=== PATIENT | male | born 1935 | race Caucasian/White ===

== ENCOUNTER → 2016-03-28 | Outpatient (CLI) | payer MEDICARE | LOC: GMAB 12:46 | PROVIDERS: ATTEND Family Medicine | DX: R79.82 Elevated C-reactive protein (CRP) (principal); R97.20 Elevated prostate specific antigen [PSA] ==

== ENCOUNTER → 2016-10-20 | Outpatient (CLI) | payer MEDICARE | END | disposition home or self-care (01) | LOC: GMAB 10:10 | PROVIDERS: ATTEND Family Medicine | DX: N39.0 Urinary tract infection, site not specified (principal) ==

== ENCOUNTER → 2016-11-20 | Outpatient (CLI) | payer MEDICARE | END | disposition home or self-care (01) | LOC: GMAB 10:24 | PROVIDERS: ATTEND Family Medicine | DX: Z12.5 Encounter for screening for malignant neoplasm of prostate (principal); I10 Essential (primary) hypertension; E11.9 Type 2 diabetes mellitus without complications; R97.20 Elevated prostate specific antigen [PSA] ==

== ENCOUNTER → 2016-12-25 | Outpatient (CLI) | payer MEDICARE | END | disposition home or self-care (01) | LOC: GMAB 14:48 | PROVIDERS: ATTEND Family Medicine | DX: N39.0 Urinary tract infection, site not specified (principal) ==

== ENCOUNTER → 2017-02-07 | Outpatient (CLI) | payer MEDICARE ==
--- NOTE | 2017-02-08 11:17 | US ---
EXAM DESCRIPTION: Carotid Duplex CLINICAL HISTORY: R26.81 UNSTEADINESS OF FEET COMPARISON: None Available. TECHNIQUE: Carotid Doppler ultrasound grayscale, color Doppler, and spectral pulse Doppler evaluation. FINDINGS: On the right, common carotid artery is tortuous with layering soft plaque along the posterior wall and focal calcified plaque at the bifurcation anteriorly and posteriorly. Peak right common carotid artery loss disease proximally are 86 cm/s with peak ICA velocities in the mid ICA at 66/8 cm/s. The ICA/CCA ratio is 0.8. No hemodynamically significant stenosis is present with moderate tortuosity of the proximal internal carotid artery also noted. Mild spectral broadening on this basis is evident. On the left, intimal thickening and moderate posterior plaque in the common carotid artery is present with peak CCA velocities are 63/6 cm/s. Peak ICA velocities are 66/12 cm/s with an ICA/CCA ratio of 1.1. No significant stenosis is identified. Antegrade flow in each vertebral artery and antegrade flow in each external carotid artery is present without velocity acceleration. IMPRESSION: Modest atherosclerosis bilaterally without hemodynamically significant stenosis with normal velocities and waveforms in both carotid systems. Antegrade flow both vertebral arteries. Electronically signed by: Spenser Alonso MD 02/08/2017 11:15 AM DRYER OPERATOR
== END ==
LOC: US 08:56
PROVIDERS: ATTEND Internal Medicine Interventional Cardiology
DX: I65.23 Occlusion and stenosis of bilateral carotid arteries (principal); R06.09 Other forms of dyspnea; R26.81 Unsteadiness on feet; I10 Essential (primary) hypertension

== ENCOUNTER 2017-02-27 15:35 | Inpatient (IN) | payer MEDICARE ==
--- NOTE | 2017-02-27 16:00 | ED.PDOC ---
History of Present Illness - General Chief Complaint: General Stated Complaint: unable to walk and poss UTI Time Seen by Provider: 02/27/17 15:57 Source: patient, family Exam Limitations: no limitations - History of Present Illness Initial Comments: PT REPORTS TO THE ED WITH COMPLAINT OF DYSURIA AND GENERALIZED WEAKNESS. PT REPORTS SYMPTOMS FOR THE PAST 2-3 DAYS. NO ASSOCIATED FLANK PAIN, FEVER, NAUSEA OR VOMITING. Severity: moderate Improving Factors: nothing Worsening Factors: nothing Associated Symptoms: malaise, weakness Allergies/Adverse Reactions: Allergies NO KNOWN ALLERGY Allergy (Verified 11/28/14 13:04) Home Medications: Ambulatory Orders Aspirin 81 mg PO DAILY 04/28/12 Simvastatin [Zocor] 20 mg PO HS 04/28/12 Cholecalciferol [Vitamin D3] 400 unit PO BID 03/17/16 Cyclobenzaprine HCl [Flexeril] 10 mg PO DAILY 03/17/16 Gabapentin [Neurontin] 300 mg PO BID 03/17/16 Glipizide 10 mg PO BID 03/17/16 Non-Formulary Medication Hydrocodone 5/500mg 1 mg PO BID PRN 03/17/16 Sitagliptin-Metformin HCl [Janumet 50-1000 mg] 1 tab PO BID 03/17/16 amLODIPine BESYLATE [Norvasc] 10 mg PO DAILY 03/17/16 [place]-3 Fatty Acids [Fish Oil] 1,200 mg PO BID 02/27/17 Review of Systems - Review of Systems Constitutional: States: malaise, weakness. Denies: chills, fever EENTM: Denies: ear pain, throat pain Respiratory: Denies: cough, short of breath Cardiology: Denies: chest pain, syncope Gastrointestinal/Abdominal: Denies: abdominal pain, nausea, vomiting Genitourinary: States: see HPI, dysuria, frequency, hematuria Musculoskeletal: States: back pain - CHRONIC. Denies: joint pain, joint swelling Skin: Denies: change in color, lesions Neurological: Denies: headache, numbness, paresthesia Endocrine: States: no symptoms reported Hematologic/Lymphatic: States: no symptoms reported Past Medical History (General) - Patient Medical History Hx Seizures: No Hx Stroke: Yes Hx Asthma: No Hx of COPD: Yes Hx Cardiac Disorders: Yes Hx Congestive Heart Failure: No Hx Pacemaker: No Hx Hypertension: Yes Hx Diabetes: Yes Hx Gastroesophageal Reflux: No Hx Renal Disease: No Hx Cancer: No Hx Hepatitis C: No Hx MRSA: Yes - Urine Cx 2017 MRSA Source:: Urine Surgical History: cholecystectomy - Vaccination History Hx Tetanus, Diphtheria Vaccination: No Hx Influenza Vaccination: Yes Hx Pneumococcal Vaccination: Yes Immunizations Up to Date: No - Social History Hx Tobacco Use: No Hx Alcohol Use: No Hx Substance Use: No Hx Depression: No Hx Physical Abuse: No Hx Emotional Abuse: No Family Medical History - Family History Father Living Status: Cause of : IA Hx Family Asthma: No Hx Family Congestive Heart Failure: Yes Hx Family Hypertension: Yes Hx Family Stroke: No Hx Cardiac Disease: Yes Hx Family Diabetes: Yes Hx Family Cancer: No Physical Exam - Physical Exam General Appearance: Comfortable, Frail, No apparent distress, Well Groomed, Well Hydrated Ears, Nose, Throat: hearing grossly normal Neck: full range of motion, supple Respiratory: lungs clear, normal breath sounds, no respiratory distress Cardiovascular/Chest: regular rate, rhythm, no murmur Gastrointestinal/Abdominal: non tender, soft Back Exam: no CVA tenderness Extremity: non-tender, normal inspection Neurologic: alert, normal mood/affect, oriented x 3 Skin Exam: normal color, warm/dry Progress - Progress Progress: 02/27/17 17:12 PT RESTING COMFORTABLY, LAB FINDINGS DISCUSSED. PT AGREES WITH PLAN TO BE ADMITTED FOR IV ANTIBIOTICS. - Results/Orders Results/Orders: 02/27/17 15:57 Sodium Chloride 0.9% (Flush) [Saline Flush Syringe] 10 ml IV PRN PRN 02/27/17 16:03 URINE CULTURE W/COLONY COUNT Stat 02/27/17 16:45 cefTRIAXone SODIUM [Rocephin] 1 gm Sodium Chl 0.9% 50Ml Min-Bag+ [NS 50ml MINI -BAG+] 50 ml IVPB ONCE BLOOD CULTURE Stat Laboratory Results - last 24 hr 02/27/17 02/27/17 02/27/17 16:03 16:12 16:12 WBC 17.4 H RBC 4.92 Hgb 16.0 Hct 45.6 MCV 92.6 MCH 32.5 H MCHC 35.1 RDW 13.1 Plt Count 230 MPV 8.4 Absolute Neuts (auto) 14.80 H Absolute Lymphs (auto) 1.30 Absolute Monos (auto) 1.20 H Absolute Eos (auto) 0.00 Absolute Basos (auto) 0.10 Neutrophils % 85.0 H Lymphocytes % 7.3 L Monocytes % 7.1 Eosinophils % 0.1 L Basophils % 0.5 Sodium 132 L Potassium 4.0 Chloride 96 L Carbon Dioxide 25 Anion Gap 15.0 BUN 14 Creatinine 0.86 BUN/Creatinine Ratio 16.3 Random Glucose 161 H Serum Osmolality 268.5 L Calcium 9.4 Total Bilirubin 0.9 Direct Bilirubin 0.1 Indirect Bilirubin 0.8 AST 21 ALT 15 Alkaline Phosphatase 71 Serum Total Protein 8.1 Albumin 4.6 Urine Color Yellow Urine Appearance Cloudy Urine pH 7.0 Ur Specific [place] 1.020 Urine Protein 100 H Urine Glucose (UA) Negative Urine Ketones Trace Urine Blood Trace-intact H Urine Nitrite Negative Urine Bilirubin Negative Urine Urobilinogen 2.0 H Ur Leukocyte Esterase Small H Urine RBC 5-10 H Urine WBC Tntc H Ur Epithelial Cells 0 Urine Bacteria 4+ H Urine Mucus Small Departure - Departure Clinical Impression: Generalized muscle weakness Urinary tract infection Qualifiers: Urinary tract infection type: site unspecified Hematuria presence: with hematuria Qualified Code(s): N39.0 - Urinary tract infection, site not specified ; R31.9 - Hematuria, unspecified Time of Disposition: 17:14 Disposition: Admit Patient Condition: Fair Departure Forms: ED Discharge - Pt. Copy, Patient Portal Self Enrollment Referrals: Drew Smith MD [Primary Care Provider] - 1-2 Weeks Home Medications: Ambulatory Orders Aspirin 81 mg PO DAILY 04/28/12 Simvastatin [Zocor] 20 mg PO HS 04/28/12 Cholecalciferol [Vitamin D3] 400 unit PO BID 03/17/16 Cyclobenzaprine HCl [Flexeril] 10 mg PO DAILY 03/17/16 Gabapentin [Neurontin] 300 mg PO BID 03/17/16 Glipizide 10 mg PO BID 03/17/16 Non-Formulary Medication Hydrocodone 5/500mg 1 mg PO BID PRN 03/17/16 Sitagliptin-Metformin HCl [Janumet 50-1000 mg] 1 tab PO BID 03/17/16 amLODIPine BESYLATE [Norvasc] 10 mg PO DAILY 03/17/16 [place]-3 Fatty Acids [Fish Oil] 1,200 mg PO BID 02/27/17 Decision To Admit - Decistion To Admit Decision to Admit Reason: Admit from ER Decision to Admit Date: 02/27/17 - CASE DISCUSSED WITH SUHAS GRAVES NP WHO AGREES TO ADMIT PATIENT Decision to Admit Time: 17:14
[2017-02-27] MEDS ORDERED: cefTRIAXone SODIUM 1 GM in SODIUM CHL 0.9% 50ML MIN-BAG+ 50 ML IVPB ONE (16:45)
[2017-02-27] MEDS ORDERED: SODIUM CHL 0.9% 50ML MIN-BAG+ 50 ML IVPB ONE ×2 (17:13→20:35)
[2017-02-27] MEDS ORDERED: cefTRIAXone SODIUM 1 GM VIAL ONE (17:13)
--- NOTE | 2017-02-27 17:26 | HP ---
SUPERVISING PHYSICIAN: Spenser Carvajal MD CHIEF COMPLAINT: Generalized weakness with inability to walk and possible urinary tract infection. HISTORY OF PRESENT ILLNESS: This is an 81-year-old male patient with a history of known urinary tract infections in the past. He states for the last three days or so, he has had some significant weakness and has been unable to walk and has been associated also with dysuria. He does not have any flank pain or fever to speak of. However, he does have a history of urinary tract infections for which he has been admitted, he states three times in the past. I have looked at previous cultures which have come back with a somewhat resistant E. coli as well as an MRSA culture of his urine in the past. This time when he came in, his labs were repeated and he showed a white count of 17.4. Hemoglobin was 16.0, platelet count 230. Chemistry was done which showed sodium 132, potassium 4.0, chloride 96, carbon dioxide 25, glucose 161, BUN 14, creatinine 0.86. Lactic acid 1.5. Urinalysis was cloudy. It was negative for nitrites, but showed too numerous to count WBCs as well as 4+ on the urine bacteria. For this reason, he was referred for admission by Dr. Elaine. At the time of examination, the patient is alert and oriented. Of note, the patient has just urinated and the urine is extremely foul. He is without distress at this time. He apparently has recently been no antibiotics by Dr. Chino for which he had been seen before for urinary tract infections. In the Emergency Room, he was given Rocephin and acetaminophen. PAST MEDICAL HISTORY: 1. Type 2 diabetes mellitus. 2. Coronary artery disease. 3. Hypertension. 4. Hyperlipidemia. 5. Obstructive sleep apnea. 6. Peripheral neuropathy. 7. Prostatitis. 8. Previous urinary tract infections with bacteria such as MRSA as well as E. coli with resistance. 9. Congestive heart failure. 10. Dementia. 11. Gout. 12. Lumbar radiculopathy. PAST SURGICAL HISTORY: 1. Cholecystectomy. 2. Back surgery. 3. Right hip fracture. 4. Colonoscopy. MEDICATIONS: 1. [place] 5/325 1 tab b.i.d. for pain. 2. Amlodipine 10 mg daily. 3. Gabapentin 300 mg t.i.d. 4. Janumet 1 tab b.i.d. 5. Mobic 7.5 mg daily. 6. Simvastatin 20 mg p.o. daily. 7. Glipizide 10 mg 1 tab b.i.d. 8. Colcrys 0.6 mg 2 tabs at onset of gouty arthritis b.i.d. p.r.n. 9. Aspirin 81 mg daily. 10. Vitamin D 400 iu 2 tabs daily. 11. Fish oil 1200 mg 2 tabs b.i.d. ALLERGIES: NO KNOWN DRUG ALLERGIES. FAMILY HISTORY: Father from a myocardial infarction. SOCIAL HISTORY: The patient is retired, nondrinker, nonsmoker, no illicit drugs. He is . In fact, his is in the hospital at this time. REVIEW OF SYSTEMS: CONSTITUTIONAL: Negative for fever or chills. Positive for weakness. No recent weight loss or weight gain. HEENT: No headaches, vision changes, ear pain, throat pain or nasal congestion. RESPIRATORY: No cough, hemoptysis or pleuritic chest pain. CARDIOVASCULAR: No palpitations, chest pain or peripheral edema. GASTROINTESTINAL: No nausea, vomiting, diarrhea, constipation or abdominal pain. GENITOURINARY: Positive for dysuria and frequency. No flank pain. MUSCULOSKELETAL: Positive for chronic back pain, but no joint pain or join swelling. SKIN: No rashes, lesions or wounds. NEUROLOGIC: No headaches, vision changes, paresthesias or syncope. ENDOCRINE: No polydipsia, polyuria, polyphagia, no heat or cold intolerance. HEMATOLOGIC: No easy bruising or transfusion reactions. PHYSICAL EXAMINATION: VITAL SIGNS: Blood pressure 159/89. Heart rate 103. Respiratory rate 18. Temperature 98.7. However, it was 100.5 upon initial presentation. O2 saturation 93%. GENERAL: Mr. Bang is an 81-year-old male patient acutely ill at this time. HEENT: Normocephalic, atraumatic. Pupils equal and reactive. Nose with no drainage. Throat with moist buccal mucosa. NECK: Supple with midline trachea. No jugular venous distention. CHEST: Symmetrical with equal rise and fall of the chest with inspiration and expiration. Lung sounds are clear to auscultation bilaterally. CARDIOVASCULAR: Regular rate and rhythm, normal S1, S2. ABDOMEN: Soft, positive bowel sounds. No tenderness to palpation, no organomegaly. GENITOURINARY: Deferred. EXTREMITIES: Lower extremities with no significant edema. Pulses are 2+. Capillary refill less than 2 seconds. NEUROLOGIC: The patient is alert and oriented. He moves all extremities. Extraocular muscles are intact. LABORATORY: Labs have been reviewed and are as per history of present illness. ASSESSMENT: 1. 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 2. Dehydration. 3. Type 2 diabetes mellitus. 4. Hypertension. PLAN: 1. As the patient has a history of resistant E. coli and history of MRSA in the urine, we will administered meropenem as the initial antibiotic. We will follow the cultures and either escalate or deescalate based on that. It does not appear he is in severe sepsis at this time and we will start IV fluids to go along with his antibiotics. 2. I have ordered sliding scale insulin at this time. We will resume his home medications as well once they are verified and hypertension will be addressed using his home medications. We will start some p.r.n. medications if necessary. 3. DVT prophylaxis ordered as well. #[id number] [facility]
[2017-02-27] MEDS ORDERED: ACETAMINOPHEN 500 MG TAB PO ONE (17:28)
[2017-02-27] MEDS ORDERED: KETOROLAC TROMETHAMINE INJ 30 MG/ML VIAL IM ONE (19:25)
[2017-02-27] MEDS: SODIUM CHLORIDE 0.9% (FLUSH) 10 ML SYG IV PRN ×2 (19:36→20:56)
[2017-02-27] MEDS ORDERED: DEXTROSE 50% 25 GM/50 ML SYG IV PRN (19:39)
[2017-02-27] MEDS ORDERED: GLUCAGON INJ 1 MG VIAL SUBCU PRN (19:39)
[2017-02-27] MEDS ORDERED: KETOROLAC TROMETHAMINE INJ 30 MG/ML VIAL IV ONE (19:42)
--- NOTE | 2017-02-27 19:50 | PCM.CORE ---
Physician DVT/VTE - Nurse DVT Assessment & Total Each Risk Factor Represents 3 Points: Age over 75 years, Medical PT with Hx of MS, CHF, Severe infection/sepsis DVT Assessment Score: 6 - 5 or more Very High Risk Treatments: Early Ambulation *, Sequential Compression Device Pharmacological: Enoxaparin 40mg SQ Daily
[2017-02-27] MEDS ORDERED: ENOXAPARIN SODIUM 40 MG/0.4 ML SYG SUBCU SCH (20:00)
[2017-02-27] MEDS ORDERED: MEROPENEM 500 MG VIAL IVPB ONE (20:35)
[2017-02-27] MEDS: MEROPENEM 500 MG in SODIUM CHL 0.9% 50ML MIN-BAG+ 50 ML IVPB SCH (20:52)
[2017-02-27] MEDS: INSULIN LISPRO 100 UNITS/ML PEN SUBCU SCH (21:22)
[2017-02-27] MEDS: IV SET AND CAP CHANGE INJ INJ SCH (21:24)
[2017-02-27] MEDS ORDERED: HYDROCODONE PO PRN (21:45)
[2017-02-28] MEDS: SODIUM CHLORIDE 0.9% 1000ML 1,000 ML IVS PRN ×2 (02:38→15:01)
[2017-02-28] MEDS: SODIUM CHLORIDE 0.9% (FLUSH) 10 ML SYG IV PRN (02:39)
[2017-02-28] MEDS ORDERED: SODIUM CHL 0.9% 50ML MIN-BAG+ 50 ML IVPB ONE ×4 (03:44→20:08)
[2017-02-28] MEDS ORDERED: MEROPENEM 500 MG VIAL IVPB ONE ×4 (03:45→20:08)
[2017-02-28] MEDS: MEROPENEM 500 MG in SODIUM CHL 0.9% 50ML MIN-BAG+ 50 ML IVPB SCH ×3 (03:48→20:13)
[2017-02-28] MEDS: INSULIN LISPRO 100 UNITS/ML PEN SUBCU SCH ×4 (07:23→20:57)
[2017-02-28] MEDS ORDERED: SITagliptin 50 MG TAB PO SCH (08:00)
[2017-02-28] MEDS ORDERED: metFORMIN HCL 500 MG TAB PO SCH (08:00)
[2017-02-28] MEDS: HYDROcodone 10MG/APAP 325MG 1 EA TAB PO PRN ×2 (08:45→20:13)
[2017-02-28] MEDS ORDERED: NON-FORMULARY MEDICATION 1 EA MIS (Sitagliptin-Metformin Hcl [Janumet 50-1000 Mg] 1 TAB) PO SCH (09:00)
--- NOTE | 2017-02-28 09:22 | PN ---
SUPERVISING PHYSICIAN: Spenser Carvajal MD DATE: 02/28/17 SUBJECTIVE: The patient feels much better than he did in the Emergency Room last night. Overnight, there were no adverse events. He does have a catheter now and his symptoms of malaise are quite improved. He does question why he continues to get urinary tract infections, however, he does have a followup appointment with Dr. Chino. He has seen him for the last three years or so with this recurrent issue. OBJECTIVE: VITAL SIGNS: Blood pressure 151/66. Heart rate 78. Respiratory rate 16. Temperature 98.6 with a maximum temperature last night of 99.6. O2 saturation 92%. GENERAL: Mr. Bang is an 81-year-old male patient in no acute distress at this time. NEUROLOGIC: Alert and oriented. LUNGS: Clear to auscultation bilaterally. CARDIOVASCULAR: Regular rate and rhythm. Normal S1, S2. ABDOMEN: Soft. Positive bowel sounds. Nontender to palpation. MUSCULOSKELETAL: Moving all extremities. Strength is a little bit improved. Capillary refill less than 2 seconds. LABORATORY: WBC 17.0, hemoglobin 13.8, hematocrit 39.4, platelet count 202. Sodium 133, potassium 3.7, chloride 100, CO2 25, BUN 17, creatinine 0.92, glucose 169, calcium 8.7. ASSESSMENT: 1. Urinary tract infection. 2. Dehydration. 3. Type 2 diabetes mellitus. 4. Hypertension. PLAN: 1. We will continue his IV fluids as well as current antibiotics. Awaiting culture results. 2. Monitor hydration status. For now, continue IV fluids. 3. Continue current p.o. medications for his diabetes as well as sliding scale insulin. 4. I have continued his p.o. home medications for his blood pressure. We will monitor the dose and adjust as necessary. #[id number] [facility]
[2017-02-28] MEDS: glipiZIDE 5 MG TAB PO SCH ×2 (09:48→16:49)
[2017-02-28] MEDS: GABAPENTIN 300 MG CAP PO SCH ×2 (09:56→20:42)
[2017-02-28] MEDS: CYCLOBENZAPRINE HCL 10 MG TAB PO SCH (09:56)
[2017-02-28] MEDS: ASPIRIN (CHEWABLE) 81 MG TAB PO SCH (09:57)
[2017-02-28] MEDS: amLODIPine BESYLATE 5 MG TAB PO SCH (09:57)
[2017-02-28] MEDS: JANUMET PO SCH (16:51)
[2017-02-28] MEDS: ENOXAPARIN SODIUM 40 MG/0.4 ML SYG SUBCU SCH (20:42)
[2017-02-28] MEDS: SIMVASTATIN 20 MG TAB PO SCH (20:42)
[2017-03-01] MEDS: SODIUM CHLORIDE 0.9% 1000ML 1,000 ML IVS PRN ×2 (01:14→11:53)
[2017-03-01] MEDS: MEROPENEM 500 MG in SODIUM CHL 0.9% 50ML MIN-BAG+ 50 ML IVPB SCH ×3 (03:57→22:19)
[2017-03-01] MEDS ORDERED: SODIUM CHL 0.9% 50ML MIN-BAG+ 50 ML IVPB ONE ×3 (07:05→19:18)
[2017-03-01] MEDS ORDERED: MEROPENEM 500 MG VIAL IVPB ONE ×3 (07:06→19:18)
[2017-03-01] MEDS: INSULIN LISPRO 100 UNITS/ML PEN SUBCU SCH ×3 (07:25→22:18)
[2017-03-01] MEDS: glipiZIDE 5 MG TAB PO SCH ×2 (07:34→22:18)
[2017-03-01] MEDS: JANUMET PO SCH ×2 (07:37→22:19)
[2017-03-01] MEDS: CYCLOBENZAPRINE HCL 10 MG TAB PO SCH (08:43)
[2017-03-01] MEDS: ASPIRIN (CHEWABLE) 81 MG TAB PO SCH (08:43)
[2017-03-01] MEDS: GABAPENTIN 300 MG CAP PO SCH ×2 (08:43→22:19)
[2017-03-01] MEDS: amLODIPine BESYLATE 5 MG TAB PO SCH (08:43)
--- NOTE | 2017-03-01 10:08 | PN ---
SUPERVISING PHYSICIAN: Spenser Carvajal MD DATE: 03/01/17 SUBJECTIVE: The patient feels a lot better today. He was able to get out of bed yesterday and move around, so his weakness is improved. He was updated on the fact that we have a gram stain on the bacteria, but not the actual bacteria , so we will continue the current antibiotics. He is okay with this at this point. OBJECTIVE: VITAL SIGNS: Blood pressure 152/65. Heart rate 77. Respiratory rate 20. Temperature 98.6. Oxygen saturation 94%. GENERAL: Mr. Bang is an 81-year-old in no active distress currently. NEUROLOGIC: Alert and oriented. LUNGS: Clear to auscultation bilaterally. CARDIOVASCULAR: Regular rate and rhythm. Normal S1, S2. ABDOMEN: Soft. Positive bowel sounds. Nontender to palpation. MUSCULOSKELETAL: Moving all extremities. Strength is improving. Capillary refill less than 2 seconds. LABORATORY: Labs were done and show a white count of 8.5, which is an improvement from 17.0 yesterday. Hemoglobin 14.1, hematocrit 40.3, platelet count 206. Chemistries show sodium 136, potassium 4.1, chloride 103, CO2 26, BUN 14, creatinine 0.84, glucose 157, calcium 8.7. MICROBIOLOGY: No growth in the blood. He does have gram negative rods on the urine culture pending exact identification at this point. ASSESSMENT: 1. Urinary tract infection. 2. Dehydration. 3. Type 2 diabetes mellitus. 4. Hypertension. PLAN: 1. Gram negative organism, likely E. coli, but we will await final identification. Given the fact that his white count is improved, likely the Merrem is working, but hopefully there will be a p.o. antibiotic that we can use once he is discharged. 2. Hydration status is improved, but we will continue his IV fluids at this time. He is not showing any signs of volume overload. 3. Diabetes is adequately controlled at this point. We will continue his p.o. medications as well as sliding scale. 4. Blood pressure is acceptable at this time, so we will continue his current medications and not make any adjustments to this. #[id number] [facility]
[2017-03-01] MEDS: HYDROcodone 10MG/APAP 325MG 1 EA TAB PO PRN (12:53)
[2017-03-01] MEDS: ENOXAPARIN SODIUM 40 MG/0.4 ML SYG SUBCU SCH (22:19)
[2017-03-01] MEDS: SIMVASTATIN 20 MG TAB PO SCH (22:19)
[2017-03-02] MEDS: SODIUM CHLORIDE 0.9% 1000ML 1,000 ML IVS PRN ×2 (01:21→21:51)
[2017-03-02] MEDS: MEROPENEM 500 MG in SODIUM CHL 0.9% 50ML MIN-BAG+ 50 ML IVPB SCH ×3 (04:03→19:53)
[2017-03-02] MEDS ORDERED: SODIUM CHL 0.9% 50ML MIN-BAG+ 50 ML IVPB ONE ×3 (06:59→19:40)
[2017-03-02] MEDS ORDERED: MEROPENEM 500 MG VIAL IVPB ONE ×3 (07:00→19:40)
[2017-03-02] MEDS: INSULIN LISPRO 100 UNITS/ML PEN SUBCU SCH ×4 (07:20→20:53)
[2017-03-02] MEDS: glipiZIDE 5 MG TAB PO SCH ×2 (07:45→16:32)
[2017-03-02] MEDS: JANUMET PO SCH ×2 (07:46→16:32)
[2017-03-02] MEDS: GABAPENTIN 300 MG CAP PO SCH ×2 (08:47→20:42)
[2017-03-02] MEDS: CYCLOBENZAPRINE HCL 10 MG TAB PO SCH (08:47)
[2017-03-02] MEDS: ASPIRIN (CHEWABLE) 81 MG TAB PO SCH (08:47)
[2017-03-02] MEDS: amLODIPine BESYLATE 5 MG TAB PO SCH (08:48)
[2017-03-02] MEDS: HYDROcodone 10MG/APAP 325MG 1 EA TAB PO PRN (08:49)
[2017-03-02] MEDS ORDERED: HYDROcodone 5MG/APAP 325MG 1 EA TAB PO PRN (13:24)
[2017-03-02] MEDS ORDERED: MAGNESIUM HYDROXIDE 30 ML UD PO ONE (13:50)
--- NOTE | 2017-03-02 14:13 | PN ---
SUPERVISING PHYSICIAN: Spenser Carvajal MD DATE: 03/02/17 SUBJECTIVE: The patient is lying in bed. He is somewhat lethargic. His daughter is concerned that his pain medications may be making him sleepy. She thought he might do just as well on a lower dose. Otherwise, he has no complaints of chest pain, nausea or vomiting. He also complains of some constipation. Although he had a very small bowel movement this morning, he has not had one since admission. OBJECTIVE: VITAL SIGNS: Afebrile. Heart rate 76. Blood pressure 164/72. Respiratory rate 20. O2 saturation 92% on room air. LUNGS: Clear to auscultation bilaterally. CARDIAC: Regular rate and rhythm. ABDOMEN: Soft, nondistended, nontender. Bowel sounds are positive. EXTREMITIES: No cyanosis, clubbing or edema. NEUROLOGIC: He is lethargic, but he is awake and is oriented times three. LABORATORY: WBC have normalized to 8.5, hemoglobin 14.1, hematocrit 40.3. Blood sugars have run between 72 and 151. Final urine culture is positive for Escherichia coli, multidrug resistant. There are no oral medications that are sensitive to this strain of E. coli, but he is on meropenem and that is sensitive to this strain of bacteria. Preliminary blood cultures show no growth after 48 hours. All other labs and films have been reviewed via the EMR. ASSESSMENT: 1. Urinary tract infection showing Escherichia coli with multidrug resistance, presently on meropenem. 2. Dehydration, improved. 3. Type 2 diabetes mellitus. 4. Hypertension. PLAN: We will continue present supportive care. At this point, I will decrease his IV fluids to 25 mL per hour. I will also order some Milk of Magnesia. His 10 mg of hydrocodone has been discontinued and I started him on 5 mg. We will need to monitor his pain level to make sure that is enough pain medication so we can adjust that as need. Due to his multidrug resistant strain of E. coli, we will plan to discharge the patient from Acute Care and admit him to Swing Bed status in the next several days for IV antibiotic therapy as well as strengthening and conditioning per physical therapy. We will do that in the next day or so. Otherwise, we will continue to monitor the patient closely and follow as needed. Dr. Carvajal is the collaborating physician and available for consultation. #[id number] [facility]
[2017-03-02] MEDS: IV SET AND CAP CHANGE INJ INJ SCH (19:57)
[2017-03-02] MEDS: SIMVASTATIN 20 MG TAB PO SCH (20:42)
[2017-03-02] MEDS: ENOXAPARIN SODIUM 40 MG/0.4 ML SYG SUBCU SCH (20:42)
[2017-03-03] MEDS: MEROPENEM 500 MG in SODIUM CHL 0.9% 50ML MIN-BAG+ 50 ML IVPB SCH ×3 (04:10→19:57)
[2017-03-03] MEDS: JANUMET PO SCH ×2 (07:34→16:50)
[2017-03-03] MEDS: glipiZIDE 5 MG TAB PO SCH ×2 (07:35→16:50)
[2017-03-03] MEDS: INSULIN LISPRO 100 UNITS/ML PEN SUBCU SCH ×4 (07:36→21:18)
[2017-03-03] MEDS: GABAPENTIN 300 MG CAP PO SCH ×2 (08:11→20:31)
[2017-03-03] MEDS: ASPIRIN (CHEWABLE) 81 MG TAB PO SCH (08:11)
[2017-03-03] MEDS: amLODIPine BESYLATE 5 MG TAB PO SCH (08:11)
[2017-03-03] MEDS: CYCLOBENZAPRINE HCL 10 MG TAB PO SCH (08:12)
[2017-03-03] MEDS ORDERED: MEROPENEM 500 MG VIAL IVPB ONE ×2 (12:14→19:40)
[2017-03-03] MEDS ORDERED: SODIUM CHL 0.9% 50ML MIN-BAG+ 50 ML IVPB ONE ×2 (12:14→19:39)
[2017-03-03] MEDS ORDERED: MAGNESIUM HYDROXIDE 30 ML UD PO PRN (13:00)
[2017-03-03] MEDS: SODIUM CHLORIDE 0.9% (FLUSH) 10 ML SYG IV SCH ×2 (13:17→20:31)
--- NOTE | 2017-03-03 13:53 | PN ---
DATE: 03/03/17 SUPERVISING PHYSICIAN: Spenser Carvajal M.D. SUBJECTIVE: The patient is sitting up in his hospital bed. He and his daughter were just walking in the hallways. Daughter feels like he is getting stronger. The patient has no complaints of shortness of breath, nausea, vomiting, diarrhea or constipation. He said he had a good bowel movement yesterday. His pain is being well controlled with the pain medications were are presently giving him. OBJECTIVE: VITAL SIGNS: T max 24 hours is 99.2, pulse rate 82, blood pressure 160/71, respiratory rate 20, O2 sat is 92% on room air. RESPIRATORY: Essentially clear to auscultation bilaterally. CARDIAC: Regular rate and rhythm. ABDOMEN: Soft, nondistended, non-tender. Bowel sounds are positive. EXTREMITIES: No cyanosis, clubbing or edema. NEUROLOGIC: He is awake, alert and oriented times three. LABORATORY: There are no labs or films to report today. ASSESSMENT: 1. Urinary tract infection showing Escherichia coli with multidrug resistance presently on Meropenem. 2. Dehydration, improved. 3. Type 2 diabetes mellitus. 4. Hypertension. PLAN: We will continue present supportive care. I have given him a p.r.n. Milk of Magnesia order. I have also discontinued his IV fluids. At this point , the patient still has a Olivas catheter and we are in the process of doing bladder training. The patient and the patient's daughter have both asked that we keep the catheter in a few extra days as he complains of incontinence, so we will keep the catheter and continue to do bladder training later during his Swing Bed stay. I have discussed the increased incidence of urinary tract infections with the indwelling catheter and they understand, and would still like to keep it for now. I have encouraged good pulmonary hygiene as well as increasing his ambulation as tolerated. We will continue to monitor the patient closely and follow as needed. Plan for discharge from Acute Care setting in the morning and admit to Swing Bed for IV antibiotic therapy and strengthening and conditioning per Physical Therapy. Dr. Carvajal is the collaborating physician available for consultation. #[id number] [facility]
[2017-03-03] MEDS: ENOXAPARIN SODIUM 40 MG/0.4 ML SYG SUBCU SCH (20:31)
[2017-03-03] MEDS: SIMVASTATIN 20 MG TAB PO SCH (20:31)
[2017-03-04] MEDS ORDERED: SODIUM CHL 0.9% 50ML MIN-BAG+ 50 ML IVPB ONE (02:59)
[2017-03-04] MEDS ORDERED: MEROPENEM 500 MG VIAL IVPB ONE (02:59)
[2017-03-04] MEDS: MEROPENEM 500 MG in SODIUM CHL 0.9% 50ML MIN-BAG+ 50 ML IVPB SCH (03:54)
[2017-03-04] MEDS: SODIUM CHLORIDE 0.9% (FLUSH) 10 ML SYG IV PRN (03:56)
[2017-03-04] MEDS: INSULIN LISPRO 100 UNITS/ML PEN SUBCU SCH (07:40)
[2017-03-04] MEDS: glipiZIDE 5 MG TAB PO SCH (07:40)
[2017-03-04] MEDS: JANUMET PO SCH (07:40)
[2017-03-04] MEDS: CYCLOBENZAPRINE HCL 10 MG TAB PO SCH (08:42)
[2017-03-04] MEDS: amLODIPine BESYLATE 5 MG TAB PO SCH (08:42)
[2017-03-04] MEDS: GABAPENTIN 300 MG CAP PO SCH (08:42)
[2017-03-04] MEDS: ASPIRIN (CHEWABLE) 81 MG TAB PO SCH (08:42)
[2017-03-04] MEDS: SODIUM CHLORIDE 0.9% (FLUSH) 10 ML SYG IV SCH (08:42)
[2017-03-04 10:10] VITALS: BP 189/80; TEMP 97.9; O2SAT 97
--- NOTE | 2017-03-04 15:21 | DS ---
SUPERVISING PHYSICIAN: Spenser Carvajal M.D. DISCHARGE DIAGNOSIS: 1. Urinary tract infection showing Escherichia coli with multidrug resistance presently on Meropenem. 2. Dehydration that has improved. 3. Diabetes mellitus type 2. 4. Hypertension. HISTORY OF PRESENT ILLNESS: This is an 81 year-old male patient who has a known history of urinary tract infections in the past. Three days prior to his admission he had significant weakness and was unable to walk. He also had some dysuria with no flank pain, but he does have a significant history of urinary tract infections for which he has been admitted to the hospital at least 3 times in the past. His previous culture showed a resistant Escherichia coli. His electrolytes in the Emergency Room showed a white count of 17,400, hemoglobin 16 with platelets 230. Sodium 132, potassium 4, chloride 96, carbon dioxide 25, glucose 161, BUN 14, creatinine 0.86. Lactic acid was 1.5. Urinalysis was cloudy and was negative for nitrites but showed too numerous to count WBCs as well as 4+ urine bacteria. He was admitted to the hospital and started in the Emergency Room on Rocephin but later switched to Merrem in the hospital due to the multidrug resistance. He had seen Dr. Chino in the past for his urinary tract infections. HOSPITAL COURSE: Vital signs remained stable. He was afebrile except for in the Emergency Room. His WBCs normalized to 8.5 and his hemoglobin was 14.1 and hematocrit 40.3. Sodium improved to 136. The remainder of his electrolytes were within normal limits. Blood cultures showed no growth after 4 days but his urine culture was Escherichia coli and did again have multiple resistance, but he is presently on Merrem and shows a sensitivity to the Escherichia coli. He also worked with Physical Therapy and he is very weak, but that has improved with strengthening and conditioning per Physical Therapy, and today he is ready to be discharged from the Acute Care setting and he will be readmitted as a Swing Bed patient to continue his strengthening and conditioning per Physical Therapy as well as IV antibiotic therapy. DISCHARGE PLAN: The patient will be discharged from the Acute Care setting today and readmitted to Swing Bed. He will need 10 days of Merrem. His first dose of Merrem was on 02/27/17. He will have physical therapy for strengthening and conditioning. I will restart his home medications. I have also consulted [employer] for his discharge planning and his home health after discharge from [facility]. He is to followup with his primary care physician, Dr. Smith, after discharge from Swing Bed. DISCHARGE MEDICATIONS: 1. Aspirin. 2. Zocor. 3. Amlodipine. 4. Glipizide. 5. Gabapentin. 6. Cyclobenzaprine. 7. Vitamin D. 8. Hydrocodone. 9. Janumet. 10. [place]-3 fatty acids. 11. Lovenox. 12. Meropenem. Dr. Carvajal is the collaborating physician available for consultation. #[id number] [facility]
== END 2017-03-04 10:50 | disposition swing bed (61) | DRG 690 ==
LOC: ER 15:35 → MS 17:20
PROVIDERS: ADMIT Nurse Practitioner; ATTEND Nurse Practitioner Acute Care
DX: N39.0 Urinary tract infection, site not specified (principal); B96.20 Unspecified Escherichia coli [E. coli] as the cause of diseases classified elsewhere; Z16.24 Resistance to multiple antibiotics; E86.0 Dehydration; E11.9 Type 2 diabetes mellitus without complications; I10 Essential (primary) hypertension; I25.10 Atherosclerotic heart disease of native coronary artery without angina pectoris; E78.5 Hyperlipidemia, unspecified; G47.33 Obstructive sleep apnea (adult) (pediatric); E11.42 Type 2 diabetes mellitus with diabetic polyneuropathy; I11.0 Hypertensive heart disease with heart failure; I50.9 Heart failure, unspecified; F03.90 Unspecified dementia, unspecified severity, without behavioral disturbance, psychotic disturbance, mood disturbance, and anxiety; R32 Unspecified urinary incontinence; M10.9 Gout, unspecified; M54.16 Radiculopathy, lumbar region; Z86.14 Personal history of Methicillin resistant Staphylococcus aureus infection; Z79.1 Long term (current) use of non-steroidal anti-inflammatories (NSAID); Z79.82 Long term (current) use of aspirin; Z79.84 Long term (current) use of oral hypoglycemic drugs; Z79.899 Other long term (current) drug therapy

== ENCOUNTER 2017-03-04 10:54 | Inpatient (IN) | payer MEDICARE ==
[2017-03-04] MEDS ORDERED: ACETAMINOPHEN 500 MG TAB PO PRN (12:37)
[2017-03-04] MEDS ORDERED: SODIUM PHOS/BIPHOS ENEMA ADULT 133 ML BTTL PR PRN (12:37)
[2017-03-04] MEDS ORDERED: MAGNESIUM HYDROXIDE 30 ML UD PO PRN (12:37)
[2017-03-04] MEDS ORDERED: MEROPENEM 500 MG VIAL IVPB SCH (13:00)
[2017-03-04] MEDS ORDERED: glipiZIDE 5 MG TAB ONE (14:31)
[2017-03-04] MEDS ORDERED: SODIUM CHL 0.9% 50ML MIN-BAG+ 0 ML IVPB ONE (14:31)
[2017-03-04] MEDS ORDERED: MEROPENEM 500 MG VIAL IVPB ONE ×3 (14:32→20:01)
[2017-03-04] MEDS: IV SET AND CAP CHANGE INJ INJ SCH (14:37)
[2017-03-04] MEDS: MEROPENEM 500 MG in SODIUM CHL 0.9% 50ML MIN-BAG+ 50 ML IVPB SCH ×2 (14:38→22:21)
[2017-03-04] MEDS: glipiZIDE 5 MG TAB PO SCH (17:17)
[2017-03-04] MEDS: NON-FORMULARY MEDICATION 1 EA MIS (Sitagliptin-Metformin Hcl [Janumet 50-1000 Mg] 1 TAB) PO SCH (17:17)
--- NOTE | 2017-03-04 17:50 | PCM.CORE ---
Physician DVT/VTE - Prophylaxis Currently: Patient already on anticoagulation therapy - Nurse DVT Assessment & Total Each Risk Factor Represents 3 Points: Age over 75 years, Medical PT with Hx of [place], CHF, Severe infection/sepsis Each Risk Factor is 1 Point: Obesity (BMI >25), Serious Lung disease (pnemonia < 1month, COPD, emphysema,etc) DVT Assessment Score: 8 - 5 or more Very High Risk Treatments: Early Ambulation *, Sequential Compression Device
--- NOTE | 2017-03-04 19:08 | HP ---
SUPERVISING PHYSICIAN: Spenser Carvajal M.D. CHIEF COMPLAINT: Multidrug resistant urinary tract infection in need of Swing Bed admission for IV antibiotics. HISTORY OF PRESENT ILLNESS: This is an 81 year-old male patient who has a known history of urinary tract infections in the past. Three days prior to his admission he had significant weakness and was unable to walk. He also had some dysuria with no flank pain, but he does have a significant history of urinary tract infections for which he has been admitted to the hospital at least 3 times in the past. His previous culture showed a resistant Escherichia coli. His electrolytes in the Emergency Room showed a white count of 17,400, hemoglobin 16 with platelets 230. Sodium 132, potassium 4, chloride 96, carbon dioxide 25, glucose 161, BUN 14, creatinine 0.86. Lactic acid was 1.5. Urinalysis was cloudy and was negative for nitrites but showed too numerous to count WBCs as well as 4+ urine bacteria. He was started on Rocephin in the Emergency Room but later switched to Merrem in the hospital due to the multidrug resistance. He had seen Dr. Chino in the past for his urinary tract infections. Vital signs remained stable. He was afebrile except for in the Emergency Room. He was admitted to the hospital. His WBCs normalized to 8.5 and his hemoglobin was 14.1 and hematocrit 40.3. Sodium improved to 136. The remainder of his electrolytes were within normal limits. Blood cultures showed no growth after 4 days but his urine culture showed Escherichia coli and did again have multiple resistance, but he is presently on Merrem and shows a sensitivity to the Escherichia coli. He also worked with Physical Therapy and although he is very weak, he has improved with strengthening and conditioning per Physical Therapy, and today was discharged from the Acute Care setting and he will be readmitted as a Swing Bed patient to continue his strengthening and conditioning per Physical Therapy as well as IV antibiotic therapy. PAST MEDICAL HISTORY: 1. Type 2 diabetes mellitus. 2. Coronary artery disease. 3. Hypertension. 4. Hyperlipidemia. 5. Obstructive sleep apnea. 6. Peripheral neuropathy. 7. Prostatitis. 8. Previous urinary tract infections with bacteria such as MRSA as well as E. coli with resistance. 9. Congestive heart failure. 10. Dementia. 11. Gout. 12. Lumbar radiculopathy. PAST SURGICAL HISTORY: 1. Cholecystectomy. 2. Back surgery. 3. Right hip fracture. 4. Colonoscopy. MEDICATIONS: 1. [place] 5/325 1 tab b.i.d. for pain. 2. Amlodipine 10 mg daily. 3. Gabapentin 300 mg t.i.d. 4. Janumet 1 tab b.i.d. 5. Mobic 7.5 mg daily. 6. Simvastatin 20 mg p.o. daily. 7. Glipizide 10 mg 1 tab b.i.d. 8. Colcrys 0.6 mg 2 tabs at onset of gouty arthritis b.i.d. p.r.n. 9. Aspirin 81 mg daily. 10. Vitamin D 400 iu 2 tabs daily. 11. Fish oil 1200 mg 2 tabs b.i.d. ALLERGIES: NO KNOWN DRUG ALLERGIES. FAMILY HISTORY: Father from a myocardial infarction. SOCIAL HISTORY: The patient is retired, nondrinker, nonsmoker, no illicit drugs. He is . In fact, his is in the hospital at this time. REVIEW OF SYSTEMS: CONSTITUTIONAL: Negative for fever or chills. Positive for weakness. No recent weight loss or weight gain. HEENT: No headaches, vision changes, ear pain, throat pain or nasal congestion. RESPIRATORY: No cough, hemoptysis or pleuritic chest pain. CARDIOVASCULAR: No palpitations, chest pain or peripheral edema. GASTROINTESTINAL: No nausea, vomiting, diarrhea, constipation or abdominal pain. GENITOURINARY: Positive for dysuria and frequency. No flank pain. MUSCULOSKELETAL: Positive for chronic back pain, but no joint pain or join swelling. SKIN: No rashes, lesions or wounds. NEUROLOGIC: No headaches, vision changes, paresthesias or syncope. ENDOCRINE: No polydipsia, polyuria, polyphagia, no heat or cold intolerance. HEMATOLOGIC: No easy bruising or transfusion reactions. PHYSICAL EXAMINATION: VITAL SIGNS: He is afebrile, heart rate 63, blood pressure 158/76, respiratory rate 17, O2 sat is 93% on room air. GENERAL: This is an 81 year-old male patient who is lying in his hospital bed. He is in no acute distress. HEENT: Normocephalic and atraumatic. Pupils are equal and reactive. Oropharynx is clear. RESPIRATORY: Essentially clear to auscultation bilaterally. CHEST: There is equal rise and fall of the chest with inspiration and expiration. CARDIOVASCULAR: Regular rate and rhythm. ABDOMEN: Soft, nondistended, non-tender. Bowel sounds are positive. GENITOURINARY: Deferred. EXTREMITIES: No cyanosis, clubbing or edema. Bilateral pedal pulses are palpable at +2. NEUROLOGIC: He is awake, alert and oriented times three. LABORATORY: There are no labs and films to report at this time. ASSESSMENT: 1. Urinary tract infection showing Escherichia coli with multidrug resistance presently on Meropenem. Will need Swing Bed admission for IV antibiotic therapy as well as physical therapy for strengthening and conditioning. 2. Diabetes mellitus type 2. 3. Hypertension. PLAN: We will admit the patient for Swing Bed. He will continue his Merrem and he will need 10 days of that. His first dose of Merrem was on 02/27/17. I have also consulted Physical Therapy for strengthening and conditioning. Restart his home medications. I have also consulted Relations Coordinator for discharge planning. He is to followup with his primary care physician, Dr. Smith, after discharge from Swing Bed. Dr. Carvajal is the collaborating physician available for consultation. #[id number] [facility]
[2017-03-04] MEDS ORDERED: SODIUM CHL 0.9% 50ML MIN-BAG+ 50 ML IVPB ONE ×2 (19:52→20:01)
[2017-03-04] MEDS ORDERED: BIFIDOBACTERIUM INFANTIS 4 MG CAP ONE (19:52)
[2017-03-04] MEDS ORDERED: ATENOLOL 25 MG TAB ONE (19:52)
[2017-03-04] MEDS ORDERED: guaiFENesin ER TAB 600 MG TAB ONE (19:52)
[2017-03-04] MEDS ORDERED: CILOSTAZOL 100 MG TAB ONE (19:53)
[2017-03-04] MEDS ORDERED: NYSTATIN POWDER 15GM BTTL TOP ONE (19:53)
[2017-03-04] MEDS: HYDROcodone 5MG/APAP 325MG 1 EA TAB PO PRN (20:18)
[2017-03-04] MEDS: ENOXAPARIN SODIUM 40 MG/0.4 ML SYG SUBCU SCH (21:02)
[2017-03-04] MEDS: GABAPENTIN 300 MG CAP PO SCH (21:02)
[2017-03-04] MEDS: SODIUM CHLORIDE 0.9% (FLUSH) 10 ML SYG IV SCH (21:02)
[2017-03-04] MEDS: SIMVASTATIN 20 MG TAB PO SCH (21:03)
[2017-03-05] MEDS ORDERED: SODIUM CHL 0.9% 50ML MIN-BAG+ 50 ML IVPB ONE ×4 (02:53→22:39)
[2017-03-05] MEDS ORDERED: MEROPENEM 500 MG VIAL IVPB ONE ×4 (02:53→22:40)
[2017-03-05] MEDS: SODIUM CHLORIDE 0.9% (FLUSH) 10 ML SYG IV PRN ×2 (06:23→14:32)
[2017-03-05] MEDS: MEROPENEM 500 MG in SODIUM CHL 0.9% 50ML MIN-BAG+ 50 ML IVPB SCH ×3 (06:24→22:18)
[2017-03-05] MEDS: glipiZIDE 5 MG TAB PO SCH ×2 (06:56→17:43)
[2017-03-05] MEDS: NON-FORMULARY MEDICATION 1 EA MIS (Sitagliptin-Metformin Hcl [Janumet 50-1000 Mg] 1 TAB) PO SCH ×2 (08:00→17:44)
[2017-03-05] MEDS: amLODIPine BESYLATE 5 MG TAB PO SCH (09:21)
[2017-03-05] MEDS: DOCUSATE SODIUM 100 MG CAP PO SCH (09:22)
[2017-03-05] MEDS: SODIUM CHLORIDE 0.9% (FLUSH) 10 ML SYG IV SCH ×2 (09:22→21:14)
[2017-03-05] MEDS: CYCLOBENZAPRINE HCL 10 MG TAB PO SCH (09:22)
[2017-03-05] MEDS: ASPIRIN (CHEWABLE) 81 MG TAB PO SCH (09:22)
[2017-03-05] MEDS: GABAPENTIN 300 MG CAP PO SCH ×2 (09:22→21:14)
[2017-03-05] MEDS: HYDROcodone 5MG/APAP 325MG 1 EA TAB PO PRN (20:07)
[2017-03-05] MEDS: SIMVASTATIN 20 MG TAB PO SCH (21:13)
[2017-03-05] MEDS: ENOXAPARIN SODIUM 40 MG/0.4 ML SYG SUBCU SCH (21:14)
[2017-03-06] MEDS: MEROPENEM 500 MG in SODIUM CHL 0.9% 50ML MIN-BAG+ 50 ML IVPB SCH ×2 (06:24→14:23)
[2017-03-06] MEDS: glipiZIDE 5 MG TAB PO SCH ×2 (06:41→17:00)
[2017-03-06] MEDS: NON-FORMULARY MEDICATION 1 EA MIS (Sitagliptin-Metformin Hcl [Janumet 50-1000 Mg] 1 TAB) PO SCH ×2 (07:42→17:08)
[2017-03-06] MEDS: CYCLOBENZAPRINE HCL 10 MG TAB PO SCH (09:04)
[2017-03-06] MEDS: DOCUSATE SODIUM 100 MG CAP PO SCH (09:04)
[2017-03-06] MEDS: amLODIPine BESYLATE 5 MG TAB PO SCH (09:04)
[2017-03-06] MEDS: ASPIRIN (CHEWABLE) 81 MG TAB PO SCH (09:04)
[2017-03-06] MEDS: GABAPENTIN 300 MG CAP PO SCH ×2 (09:04→20:35)
[2017-03-06] MEDS: SODIUM CHLORIDE 0.9% (FLUSH) 10 ML SYG IV SCH ×2 (09:05→20:34)
[2017-03-06] MEDS ORDERED: MEROPENEM 500 MG VIAL IVPB ONE (13:51)
[2017-03-06] MEDS ORDERED: SODIUM CHL 0.9% 50ML MIN-BAG+ 50 ML IVPB ONE ×3 (13:51→20:01)
[2017-03-06] MEDS ORDERED: cefTRIAXone SODIUM 1 GM VIAL ONE ×2 (17:24→20:01)
[2017-03-06] MEDS: cefTRIAXone SODIUM 1 GM in SODIUM CHL 0.9% 50ML MIN-BAG+ 50 ML IVPB SCH (17:25)
--- NOTE | 2017-03-06 20:07 | PN ---
DATE: 03/06/17 SUBJECTIVE: The patient is sitting up and feeling much improved. He is seen while Dr. Ramos is visiting. He recently had a stress test and reports of the stress test were within normal limits, and are reported to him for which he was thankful. He is now completing a course of parenteral therapy for a highly resistant Escherichia coli urinary tract infection and is showing some steady clinical improvement. OBJECTIVE: Afebrile, blood pressure 154/85, pulse oximetry 95% on room air. We will be repeating some lab in the morning to make sure that the treatment course is having its desired beneficial effect. The patient has been receiving q.i.d. a.c. and h.s. finger stick blood glucoses. These are stopped because he is currently on oral treatment and will check a BMP in the morning with his sugars generally having been within normal limits. Heart and lung exam is otherwise normal. ASSESSMENT: 1. Acute urinary tract infection with Escherichia coli with multidrug resistance profile having been started initially on Meropenem and continued on the initial portion of Swing Bed status. At this time since the organism is sensitive to Ceftriaxone, this will be switched to 1 gram every 12 hours and observe for at least a couple more days at which time we will be able to taper him down to the point where he can be able to go home after completing a parenteral course of therapy. Repeat urinalysis suggested. 2. Diabetes mellitus type 2 and will cut back on his frequency of sliding scale q.i.d. blood glucose determination. 3. Hypertension. PLAN: Will continue with antibiotic coverage stopping the Merrem and continuing with Ceftriaxone 1 gram every 12 hours. Check urinalysis. Recheck lab to evaluate for current status and anticipate being able to go home within the next 2 to 3 days. Physical Therapy to assist in achieving his maximal improvement of his strengthening and conditioning so that he will be able to safely return home. #[id number] [facility]
[2017-03-06] MEDS: ENOXAPARIN SODIUM 40 MG/0.4 ML SYG SUBCU SCH (20:35)
[2017-03-06] MEDS: SIMVASTATIN 20 MG TAB PO SCH (20:35)
[2017-03-06] MEDS: HYDROcodone 5MG/APAP 325MG 1 EA TAB PO PRN (20:42)
[2017-03-07] MEDS: cefTRIAXone SODIUM 1 GM in SODIUM CHL 0.9% 50ML MIN-BAG+ 50 ML IVPB SCH ×2 (05:53→17:03)
[2017-03-07] MEDS: glipiZIDE 5 MG TAB PO SCH ×2 (06:30→17:02)
[2017-03-07] MEDS: NON-FORMULARY MEDICATION 1 EA MIS (Sitagliptin-Metformin Hcl [Janumet 50-1000 Mg] 1 TAB) PO SCH ×2 (07:24→17:02)
[2017-03-07] MEDS: CYCLOBENZAPRINE HCL 10 MG TAB PO SCH (08:08)
[2017-03-07] MEDS: GABAPENTIN 300 MG CAP PO SCH ×2 (08:08→21:26)
[2017-03-07] MEDS: DOCUSATE SODIUM 100 MG CAP PO SCH (08:09)
[2017-03-07] MEDS: ASPIRIN (CHEWABLE) 81 MG TAB PO SCH (08:09)
[2017-03-07] MEDS: SODIUM CHLORIDE 0.9% (FLUSH) 10 ML SYG IV SCH ×2 (08:09→21:26)
[2017-03-07] MEDS: amLODIPine BESYLATE 5 MG TAB PO SCH (08:09)
[2017-03-07] MEDS: IV SET AND CAP CHANGE INJ INJ SCH (12:04)
[2017-03-07] MEDS ORDERED: cefTRIAXone SODIUM 1 GM VIAL ONE ×2 (14:50→20:33)
[2017-03-07] MEDS ORDERED: SODIUM CHL 0.9% 50ML MIN-BAG+ 50 ML IVPB ONE ×2 (14:50→20:33)
[2017-03-07] MEDS: SIMVASTATIN 20 MG TAB PO SCH (21:26)
[2017-03-07] MEDS: ENOXAPARIN SODIUM 40 MG/0.4 ML SYG SUBCU SCH (21:26)
[2017-03-07] MEDS: HYDROcodone 5MG/APAP 325MG 1 EA TAB PO PRN (23:24)
[2017-03-08] MEDS: cefTRIAXone SODIUM 1 GM in SODIUM CHL 0.9% 50ML MIN-BAG+ 50 ML IVPB SCH ×2 (05:39→16:59)
[2017-03-08] MEDS: glipiZIDE 5 MG TAB PO SCH ×2 (06:36→16:58)
[2017-03-08] MEDS: NON-FORMULARY MEDICATION 1 EA MIS (Sitagliptin-Metformin Hcl [Janumet 50-1000 Mg] 1 TAB) PO SCH ×2 (07:32→17:47)
[2017-03-08] MEDS: CYCLOBENZAPRINE HCL 10 MG TAB PO SCH (08:00)
[2017-03-08] MEDS: ASPIRIN (CHEWABLE) 81 MG TAB PO SCH (08:00)
[2017-03-08] MEDS: GABAPENTIN 300 MG CAP PO SCH ×2 (08:00→20:47)
[2017-03-08] MEDS: amLODIPine BESYLATE 5 MG TAB PO SCH (08:00)
[2017-03-08] MEDS: DOCUSATE SODIUM 100 MG CAP PO SCH (08:00)
[2017-03-08] MEDS: SODIUM CHLORIDE 0.9% (FLUSH) 10 ML SYG IV SCH ×2 (08:01→20:47)
[2017-03-08] MEDS: BIFIDOBACTERIUM INFANTIS 4 MG CAP PO SCH ×2 (10:27→20:47)
[2017-03-08] MEDS ORDERED: SODIUM CHL 0.9% 50ML MIN-BAG+ 50 ML IVPB ONE (16:54)
[2017-03-08] MEDS ORDERED: cefTRIAXone SODIUM 1 GM VIAL ONE (16:55)
[2017-03-08] MEDS: SIMVASTATIN 20 MG TAB PO SCH (20:47)
[2017-03-08] MEDS: ENOXAPARIN SODIUM 40 MG/0.4 ML SYG SUBCU SCH (20:48)
[2017-03-09] MEDS ORDERED: SODIUM CHL 0.9% 50ML MIN-BAG+ 50 ML IVPB ONE ×3 (05:37→19:58)
[2017-03-09] MEDS ORDERED: cefTRIAXone SODIUM 1 GM VIAL ONE ×3 (05:38→19:59)
[2017-03-09] MEDS: cefTRIAXone SODIUM 1 GM in SODIUM CHL 0.9% 50ML MIN-BAG+ 50 ML IVPB SCH ×2 (05:53→17:47)
[2017-03-09] MEDS: glipiZIDE 5 MG TAB PO SCH ×2 (07:05→17:45)
[2017-03-09] MEDS: NON-FORMULARY MEDICATION 1 EA MIS (Sitagliptin-Metformin Hcl [Janumet 50-1000 Mg] 1 TAB) PO SCH ×2 (07:31→17:47)
[2017-03-09] MEDS: SODIUM CHLORIDE 0.9% (FLUSH) 10 ML SYG IV SCH ×2 (08:53→20:35)
[2017-03-09] MEDS: BIFIDOBACTERIUM INFANTIS 4 MG CAP PO SCH ×2 (08:54→20:35)
[2017-03-09] MEDS: amLODIPine BESYLATE 5 MG TAB PO SCH (08:54)
[2017-03-09] MEDS: GABAPENTIN 300 MG CAP PO SCH ×2 (08:54→20:35)
[2017-03-09] MEDS: DOCUSATE SODIUM 100 MG CAP PO SCH (08:55)
[2017-03-09] MEDS: CYCLOBENZAPRINE HCL 10 MG TAB PO SCH (08:55)
[2017-03-09] MEDS: ASPIRIN (CHEWABLE) 81 MG TAB PO SCH (08:55)
[2017-03-09] MEDS: ENOXAPARIN SODIUM 40 MG/0.4 ML SYG SUBCU SCH (20:35)
[2017-03-09] MEDS: SIMVASTATIN 20 MG TAB PO SCH (20:35)
[2017-03-10] MEDS: cefTRIAXone SODIUM 1 GM in SODIUM CHL 0.9% 50ML MIN-BAG+ 50 ML IVPB SCH (05:44)
[2017-03-10] MEDS: glipiZIDE 5 MG TAB PO SCH (06:34)
[2017-03-10] MEDS: NON-FORMULARY MEDICATION 1 EA MIS (Sitagliptin-Metformin Hcl [Janumet 50-1000 Mg] 1 TAB) PO SCH (07:48)
[2017-03-10] MEDS: amLODIPine BESYLATE 5 MG TAB PO SCH (09:03)
[2017-03-10] MEDS: CYCLOBENZAPRINE HCL 10 MG TAB PO SCH (09:03)
[2017-03-10] MEDS: GABAPENTIN 300 MG CAP PO SCH (09:03)
[2017-03-10] MEDS: ASPIRIN (CHEWABLE) 81 MG TAB PO SCH (09:03)
[2017-03-10] MEDS: BIFIDOBACTERIUM INFANTIS 4 MG CAP PO SCH (09:03)
[2017-03-10] MEDS: DOCUSATE SODIUM 100 MG CAP PO SCH (09:03)
[2017-03-10] MEDS: SODIUM CHLORIDE 0.9% (FLUSH) 10 ML SYG IV SCH (09:04)
[2017-03-10 11:15] VITALS: BP 158/80; TEMP 98.1; O2SAT 95
--- NOTE | 2017-03-10 18:05 | DS ---
SUPERVISING PHYSICIAN: Joseph Kelly M.D. DISCHARGE DIAGNOSIS: 1. Urinary tract infection with Escherichia coli, multiple resistance profile. 2. Diabetes mellitus type 2. 3. Hypertension. HISTORY OF PRESENT ILLNESS: Mr. Bang is an 81 year-old white male who was admitted to the hospital on 03/04/17 for a urinary tract infection. He has a history of diabetes type 2 and frequent urinary tract infections. He was unable to walk and had weakness and dysuria. No flank pain. With his significant history of urinary tract infections, he was admitted to the hospital. The culture indicated Escherichia coli resistant to multiple antibiotics. He was started on Rocephin and then changed to Merrem during his hospital stay. He had seen Dr. Chino in the past for urinary tract infections. HOSPITAL COURSE: His vital signs remained stable. He is afebrile. His blood count is 7.1. He is not anemic. His basic metabolic panel was benign on . Mildly hyponatremic with a sodium of 134. He was initially started on Rocephin, however when the culture came back resistant to cephalosporins he was changed to Meropenem. He was placed on Swing Bed status for this stay. He is, however, now up and ambulating and doing well. He no longer has dysuria and urinary frequency, and is able to void regularly without pain. His diabetes has been stable throughout his stay. DISCHARGE PLAN: The patient will be discharged from Swing Bed to his home in good condition. He will no longer need antibiotics after discharge. He will followup with Dr. Smith this week. He also has an appointment with Dr. Kc, his informatics specialist, some time this week or next week. We will restart his home medications and he will continue with home health after discharge. DISCHARGE MEDICATIONS: 1. Aspirin. 2. Zocor. 3. Amlodipine. 4. Glipizide. 5. Gabapentin. 6. Cyclobenzaprine. 7. Vitamin D. 8. Hydrocodone. 9. Janumet. 10. [place]-[address] Kelly is the collaborating physician available for consultation. [facility][id number] [facility]
== END 2017-03-10 14:55 | disposition home or self-care (01) | DRG 690 ==
LOC: MS 10:54
PROVIDERS: ADMIT Family Medicine; ATTEND Nurse Practitioner Acute Care
DX: N39.0 Urinary tract infection, site not specified (principal); E87.1 Hypo-osmolality and hyponatremia; B96.20 Unspecified Escherichia coli [E. coli] as the cause of diseases classified elsewhere; Z16.24 Resistance to multiple antibiotics; I25.10 Atherosclerotic heart disease of native coronary artery without angina pectoris; E78.5 Hyperlipidemia, unspecified; G47.33 Obstructive sleep apnea (adult) (pediatric); E11.42 Type 2 diabetes mellitus with diabetic polyneuropathy; I11.0 Hypertensive heart disease with heart failure; I50.9 Heart failure, unspecified; F03.90 Unspecified dementia, unspecified severity, without behavioral disturbance, psychotic disturbance, mood disturbance, and anxiety; M10.9 Gout, unspecified; Z79.891 Long term (current) use of opiate analgesic; Z79.84 Long term (current) use of oral hypoglycemic drugs; Z79.1 Long term (current) use of non-steroidal anti-inflammatories (NSAID); Z79.82 Long term (current) use of aspirin

== ENCOUNTER → 2017-11-28 | Outpatient (CLI) | payer MEDICARE | LOC: GMAE 10:31 | PROVIDERS: ATTEND Family Medicine | DX: I10 Essential (primary) hypertension (principal) ==

== ENCOUNTER → 2019-03-06 | Outpatient (CLI) | payer MEDICARE | LOC: GMAE 10:37 | PROVIDERS: ATTEND Family Medicine | DX: E53.8 Deficiency of other specified B group vitamins (principal); I10 Essential (primary) hypertension; E11.40 Type 2 diabetes mellitus with diabetic neuropathy, unspecified; M10.9 Gout, unspecified; Z12.5 Encounter for screening for malignant neoplasm of prostate | CPT/HCPCS: 82607; 84443; 84550; G0103 ==

== ENCOUNTER → 2020-03-12 | Outpatient (CLI) | payer MEDICARE | LOC: GMAE 13:03 | PROVIDERS: ATTEND Family Medicine | DX: I10 Essential (primary) hypertension (principal); E11.40 Type 2 diabetes mellitus with diabetic neuropathy, unspecified; Z79.891 Long term (current) use of opiate analgesic ==